=== PATIENT | female | born 1935 | race Caucasian/White ===

== ENCOUNTER 2016-10-24 06:54 | Day surgery (SDC) | payer MEDICARE, BC ==
[~2016-10-24 06:54] MED LIST: Lactated Ringers 1,000 ML IV SCH; Sodium Chloride 0.9% 10 ML Syringe FLUSH PRN
[2016-10-24] MEDS ORDERED: Midazolam 1 MG/ML 2 ML SDV IV ONE (08:00)
[2016-10-24] MEDS ORDERED: Lidocaine 2% 100 MG/5 ML Syringe IVPUSH ONE (08:00)
[2016-10-24] MEDS ORDERED: Propofol 200 MG/20 ML SDV IV ONE (08:00)
--- NOTE | 2016-10-24 08:46 | PCM.OPNOTE ---
- General Post-Op/Procedure Note Date of Surgery/Procedure: 10/24/16 Operative Procedure(s): egd with bx. c scope with bx Findings: gastritis hiatal hernia sigmoid diverticulosis rectal polyp Pre Op Diagnosis: brbpr. hx of gastric and rectal polyp Post-Op Diagnosis: gastritis. hiatal hernia. sigmoid diverticulosis. rectal polyp Anesthesia Technique: MAC Primary Surgeon: Angel Healy Anesthesia Provider: Delia Head Pathology: gastric mucosa rectal polyp Complications: None Condition: Good Free Text/Narrative:: see dictation
[2016-10-24 09:26] VITALS: BP 158/83
--- NOTE | 2016-10-24 11:31 | OR ---
DATE OF OPERATION: 10/24/2016 SURGEON: Angel Healy MD PROCEDURE PERFORMED: Esophagogastroduodenoscopy with cold forceps biopsy and colonoscopy with cold forceps biopsy. PREOPERATIVE DIAGNOSES: Personal history of bright red blood per rectum, gastric polyp and colon polyps. POSTOPERATIVE DIAGNOSES: Gastritis, small hiatal hernia, sigmoid diverticulosis, and rectal polyp. INDICATIONS FOR PROCEDURE: This is an 81-year-old white female with the above- mentioned history. She presents for EGD and colonoscope. DESCRIPTION OF PROCEDURE: After an excellent IV sedation was administered, the bite block was inserted. The flexible endoscope was passed without difficulty down the patient's esophagus into her stomach. The stomach was insufflated. The scope was passed through the pylorus to the second portion of duodenum and withdrawn. The following findings were noted: Duodenum was unremarkable. The stomach demonstrated some antritis. Biopsies were taken and on retroflexing the scope, there was a small hiatal hernia. GE junction was unremarkable. The esophagus was unremarkable. The stomach was deflated, and the scope was removed. Our attention was then turned to the patient's colon. Digital rectal exam was performed. No marked abnormality was noted. The flexible colonoscope was inserted without difficulty to the patient's cecum. The prep was excellent. The following findings were noted: Ascending colon, unremarkable. Transverse colon, unremarkable. Descending colon, unremarkable. Sigmoid, moderate diverticulosis rectum at approximately 10 cm, a small polyp, biopsied with cold biopsy forceps and sent for permanent. Retroflexing the scope did not really demonstrate any significant hemorrhoidal disease. Colon was deflated. The scope was removed. The patient tolerated the procedure well and was taken to recovery room in good condition. /[id number] /MODL
== END 2016-10-24 10:12 | disposition home or self-care (01) ==
LOC: FB.SDS 06:54
PROVIDERS: ATTEND Surgery
DX: K29.50 Unspecified chronic gastritis without bleeding (principal); K44.9 Diaphragmatic hernia without obstruction or gangrene; K57.30 Diverticulosis of large intestine without perforation or abscess without bleeding; D12.8 Benign neoplasm of rectum; Z86.010 Personal history of colon polyps; K62.5 Hemorrhage of anus and rectum; I10 Essential (primary) hypertension; E78.2 Mixed hyperlipidemia; R07.9 Chest pain, unspecified
CPT/HCPCS: 00810; 43239; 45380; J2250; J2704; J7120; 88305; 88342

== ENCOUNTER 2019-08-14 06:38 | Day surgery (SDC) | payer MEDICARE, BC ==
[2019-08-14] MEDS ORDERED: Lidocaine 1% PF 2 ML SDV INJECT ONE (06:39)
[2019-08-14] MEDS ORDERED: Propofol 200 MG/20 ML SDV IV ONE (06:39)
[2019-08-14] MEDS ORDERED: Sodium Chloride 0.9% 10 ML Syringe FLUSH PRN (06:45)
[2019-08-14] MEDS: Lactated Ringers 1,000 ML IV SCH (07:24)
--- NOTE | 2019-08-14 09:19 | PCM.OPNOTE ---
- General Post-Op/Procedure Note Date of Surgery/Procedure: 08/14/19 Operative Procedure(s): c scope with bx cold forcep cold loop Findings: ascending colon polyp x2 diverticulosis Pre Op Diagnosis: change in bowel habits. lower abd pain Post-Op Diagnosis: diverticulosis. ascending colon polyp x2 Anesthesia Technique: MAC Primary Surgeon: Angel Healy Anesthesia Provider: Shakeel Roche Pathology: colon polyp Complications: None Condition: Good Free Text/Narrative:: see dictation
[2019-08-14 09:57] VITALS: BP 161/73; PULSE 68
--- NOTE | 2019-08-14 15:32 | OR ---
DATE OF OPERATION: 08/14/2019 SURGEON: Angel Healy MD PROCEDURE PERFORMED: Colonoscopy with cold forceps and cold loop biopsy. PREOPERATIVE DIAGNOSIS: Lower abdominal pain with change in bowel habits. POSTOPERATIVE DIAGNOSIS: Ascending colon polyps x2, diverticulosis of the transverse, descending, and sigmoid colon. INDICATIONS FOR PROCEDURE: This is an 84-year-old white female, who was referred with the above-noted issues, was offered and accepted same. DESCRIPTION OF OPERATION: After an excellent IV sedation was administered, digital rectal exam was performed. No marked abnormality was noted. Flexible colonoscope was inserted and advanced to cecum. Prep was excellent. Following findings were noted. Ascending colon, 2 polypoid lesions within 5 mm of each other, biopsied with cold forceps and cold loop snare, submitted in 1 container. Transverse colon; diverticulosis at the distal transverse colon. Descending colon, moderate diverticulosis. Sigmoid, moderate diverticulosis. Rectum and anus, unremarkable. The patient tolerated the procedure well, was taken to recovery. Results will be sent to patient. /[id number] /MODL
== END 2019-08-14 10:07 | disposition home or self-care (01) ==
LOC: FB.SDS 06:38
PROVIDERS: ATTEND Surgery
DX: D12.2 Benign neoplasm of ascending colon (principal); K57.30 Diverticulosis of large intestine without perforation or abscess without bleeding; I10 Essential (primary) hypertension; E78.2 Mixed hyperlipidemia; Z79.899 Other long term (current) drug therapy; Z88.8 Allergy status to other drugs, medicaments and biological substances; Z90.49 Acquired absence of other specified parts of digestive tract
CPT/HCPCS: 00811-QZ; 88305; J2001; J2704; J7120

== ENCOUNTER 2022-01-28 17:42 | Emergency (ER) | payer MEDICARE, BC ==
[2022-01-28] MEDS ORDERED: Acetaminophen/oxyCODONE 325-5 MG Tab PO STA (18:22)
[2022-01-28] MEDS ORDERED: Ondansetron 4 MG Tab.DIS PO ONE ×2 (18:22→20:25)
[2022-01-28 18:36] LABS: ESTIMATED GFR 40 mL/min (>60)
[2022-01-28] MEDS ORDERED: Sodium Chloride 0.9% 1,000 ML IV ONE (19:12)
[2022-01-28] MEDS ORDERED: Dexamethasone 4 MG/ML 5 ML MDV IVPUSH ONE (19:30)
[2022-01-28] MEDS ORDERED: Azithromycin 500 MG in Sodium Chloride 0.9% 250 ML IV ONE (19:31)
[2022-01-28 21:30] VITALS: BP 138/83; PULSE 70
== END 2022-01-28 21:00 | disposition home or self-care (01) ==
LOC: FB.ED 17:42
DX: U07.1 COVID-19 (principal); E87.1 Hypo-osmolality and hyponatremia; I10 Essential (primary) hypertension; E78.00 Pure hypercholesterolemia, unspecified; Z79.899 Other long term (current) drug therapy; Z88.6 Allergy status to analgesic agent
CPT/HCPCS: 36415; 80048; 85027; 85651; 86140; 96365; 96368; 99284; A9270; J0456; J1100; J7030; J7050; Q0162; U0002